=== PATIENT | female | born 1965 | race African-American/Black ===

== ENCOUNTER 2017-11-14 13:02 | Emergency (ER) | payer OTHER ==
[~2017-11-14] VITALS: Ht 154.9 cm; Wt 52.2 kg
[2017-11-14] MEDS ORDERED: SEROQUEL300 MG (13:28)
[2017-11-14] MEDS ORDERED: HUMALOG MI100 UNIT/1 (13:29)
== END 2017-11-14 17:04 | disposition home or self-care (01) ==
LOC: ER 13:02
DX: L03.115 Cellulitis of right lower limb (principal); E11.9 Type 2 diabetes mellitus without complications

== ENCOUNTER 2020-01-16 20:05 | Emergency (ER) | payer OTHER ==
[~2020-01-16] VITALS: Ht 152.4 cm; Wt 48.5 kg
[~2020-01-16 20:05] MED LIST: HUMALOG MI100 UNIT/1; SEROQUEL300 MG
[2020-01-16] MEDS ORDERED: JANUMET 50-5001 EACH (20:28)
== END 2020-01-16 22:48 | disposition home or self-care (01) ==
LOC: ER 20:05
DX: R51.9 Headache, unspecified (principal); Z03.818 Encounter for observation for suspected exposure to other biological agents ruled out